=== PATIENT | female | born 2000 | race Caucasian/White ===

== ENCOUNTER 2020-05-08 11:57 | Inpatient (IN) | payer OTHER ==
--- NOTE | ~2020-05-08 | OR ---
[facility] [address] [place], [place] [address] Draft DATE OF OPERATION: 05/09/2020 SURGEON: Martín Walsh DO CLOTH COVERER: Dr. Johnson. PROCEDURE: Primary low-transverse caesarean section. PREOPERATIVE DIAGNOSES: 1. Prelabor rupture of membranes, 39 weeks gestation. 2. intolerance to labor, remote from delivery. POSTOPERATIVE DIAGNOSES: 1. Prelabor rupture of membranes, 39 weeks gestation. 2. intolerance to labor, remote from delivery. 3. Status post primary low transverse and delivery of viable male term . ESTIMATED BLOOD LOSS: 500 mL. LINES: None. DRAINS: Montez catheter. FINDINGS: Viable term male weighing 7 pounds, Apgars 9 and 9 at 1 and 5 minutes respectively. Normal appearing uterus, bilateral tubes and ovaries. ROT position at the time of delivery. INDICATIONS: The patient was admitted on 05/08/2020 for premature rupture of membranes. Pen G was started for GBS prophylaxis. She initially made change from 2 cm to 3 cm, then failed to make further change, Pitocin was started that had to be discontinued and repeated 3 times after consistently demonstrating intolerance to labor and no cervical changer fixer 4 hours. She was consented for primary delivery. PATIENT NAME: BILLIE GRANADOS OPERATIVE REPORT DATE OF : [birth year] REPORT #: [id number] PHYSICIAN: MARTÍN WALSH DO PCP: NO PRIMARY CARE PHYSICIAN REPORT IS CONFIDENTIAL AND NOT TO BE RELEASED WITHOUT AUTHORIZATION [facility] [address] [place], [place] [address] Draft DESCRIPTION OF PROCEDURE: The patient was taken to the operating room where epidural anesthesia was bolused. Montez catheter was already in place. IPCs were placed bilaterally. She was given 2 g of Ancef and 500 mg of Azithromycin IV. She was prepped and draped in a normal sterile fashion in supine fashion with leftward tilt. Adequate anesthesia was determined. Pfannenstiel incision was made with a scalpel and carried through the underlying fascia. Fascial incision was extended bilaterally with Robles scissors. Superior margin of fascia was grasped and elevated with Syeda clamps, underlying rectus muscle dissected off bluntly and sharply with Robles scissors with similar fashion. The inferior margin was grasped with Syeda clamps, elevated, underlying rectus muscle dissected off bluntly and sharply with Robles scissors. The peritoneum was entered, bladder was well visualized and noted to be high. The peritoneal incision was extended superiorly with Metzenbaum scissors. Delvin retractor was placed. Low transverse uterine incision was made with a scalpel and hysterotomy was extended laterally with superior and inferior manual traction. Infants's head was easily elevated to the level of the incision, noted to be in ROT position, delivered easily with nuchal x1, which was reduced. The remainder of 's body was delivered easily. Baby gave an immediate spontaneous cry, cord was doubly clamped and cut and baby was immediately handed off to waiting nursery team. Cord blood was collected for type and Gómez. Segment of cord was collected in case of need for future culture and placenta was delivered manually with gentle cord traction. Uterus was cleared off membranes and clots. Hysterotomy was closed in a double-layered closure first with 0 Monocryl in a running fashion then with 0 Monocryl in an imbricating fashion. Excellent hemostasis of the hysterotomy was noted. Gutters were cleared of clots and debris and pelvis was suctioned and irrigated. Sheet of Acell was placed over the hysterotomy, which was again noted to be hemostatic. The peritoneum was closed with 2-0 Vicryl in a running fashion. Rectus muscles were reapproximated with 0 Vicryl in a simple interrupted fashion and small perforating vessels were cauterized with a Bovie cautery. Fascia was closed with 0 Vicryl in a running fashion working medially from each apex with 2 sutures meeting in the middle. Subcutaneous perforating vessels were cauterized with Bovie cautery and subcutaneous layer was closed with 3-0 Vicryl in a simple interrupted fashion. Skin was closed with skin clips. Uterus was Crede'd with small amount of blood clot noted with no persistent bleeding and fundus was firm below umbilicus. Skin was top dressed with a dressing. All lap, sponge, and instrument counts were correct x2. The patient was transported to [facility] for recovery with infant skin to skin. Both mother and baby were noted to be in stable condition. Martín Walsh DO PATIENT NAME: BILLIE GRANADOS OPERATIVE REPORT DATE OF : [birth year] REPORT #: [id number] PHYSICIAN: MARTÍN WALSH DO PCP: NO PRIMARY CARE PHYSICIAN REPORT IS CONFIDENTIAL AND NOT TO BE RELEASED WITHOUT AUTHORIZATION [address] [address] Draft EVETTE /[id number] Copies: ~ PATIENT NAME: BILLIE GRANADOS OPERATIVE REPORT DATE OF : [birth year] REPORT #: [id number] PHYSICIAN: MARTÍN WALSH DO PCP: NO PRIMARY CARE PHYSICIAN REPORT IS CONFIDENTIAL AND NOT TO BE RELEASED WITHOUT AUTHORIZATION
--- NOTE | 2020-05-08 14:59 | NUR ---
RT COLLECTED COVID 19 SWAB WITH NO COMPLICATIONS. RT USED THE CEPHEID RAPID TEST THROUGH [facility] PER DR REQUEST AT THIS TIME.
[2020-05-08] MEDS ORDERED: VITAFOL-OB+DHA1 EACH PO (20:27)
--- NOTE | 2020-05-09 06:38 | NUR ---
05/09/20 0638 Paola Oneal 0625- PT ARRIVES TO PACU AWAKE AND ORIENTED. PT REPORTS HER LEGS NORMALLY SHAKE DUE TO RESTLESS LEG SYNDROME BUT BECAUSE THEY ARE NUMB FROM HER EPIDURAL THE REST OF HER BODY IS SHAKING. PT REPORTS SOME PAIN DUE TO THIS IN HER ABD. RATES THE PAIN A 3/10. PT REPORTS THIS IS TOLERABLE FOR HER AT THIS TIME. PT DENIES ANY NAUSEA. 18G IV TO THE LEFT HAND IS INFUSING WELL. 0634- PT SAT UP IN BED SLIGHTLY. PT REPORTS NO DIZZINESS OR NAUSEA. 0637- LEANDRA BOSWELL RN AT THE BEDSIDE TO ASSIST THE MOTHER WITH ATTEMPTING TO BREAST FEED.
--- NOTE | 2020-05-11 12:42 | PR ---
[facility] [address] [facility] [place], [place] [address] Signed PP Progress Notes Datetime Report Generated by CPN: 05/11/2020 12:42 SUBJECTIVE: [id number] Pain: Within Normal Limits Nausea/Vomiting: Denies Flatus: Yes Bowel Movement: Yes Vital Signs: [id number] Vital Signs: Reviewed; Within Normal Limits Cardiovascular: Normal Respiratory: Normal Abdomen/Uterus: Normal Lochia: Normal Breasts: Normal Extremities: Normal Incision: Normal Progress: Normal Exam Comments: RRR CTAB FFBU 1+ pitting edema BLLE Incision c/d/i, margins well-approximated IMPRESSION/PLAN/PROCEDURES: [id number] Impression: Normal Progression Plan: Continue Present Management; Remove Minesh; Discharge Progress Notes: POD#2 s/p PLTCS for intolerance to labor remote from delivery -normal progression -hgb 8.1, asymptomatic, lochia light. Discussed importance of oral iron + bowel care - well Anticipate DC to home today Signing Physician: Martín Walsh DO Copies: ~ *Electronically Signed* 05/11/20 1242 MARTÍN WALSH DO PATIENT NAME: BILLIE GRANADOS PROGRESS NOTE DATE OF : [birth year] PHYSICIAN: MARTÍN WALSH DO RPT #: [id number] REPORT IS CONFIDENTIAL AND NOT TO BE RELEASED WITHOUT AUTHORIZATION
== END 2020-05-11 14:25 | disposition home or self-care (01) | DRG 788 ==
LOC: FBCO 11:57 → FBC 12:05 → FBCO 05-14 09:39
PROVIDERS: ADMIT Obstetrics & Gynecology; ATTEND Obstetrics & Gynecology
PROC: 00HU33Z Insertion of Infusion Device into Spinal Canal, Percutaneous Approach (ICD-10-PCS; 2020-05-09)
PROC: 3E0R3BZ Introduction of Anesthetic Agent into Spinal Canal, Percutaneous Approach (ICD-10-PCS; 2020-05-09)
PROC: 10D00Z1 Extraction of Products of Conception, Low, Open Approach (ICD-10-PCS; principal; 2020-05-09 05:27)
DX: O42.92 Full-term premature rupture of membranes, unspecified as to length of time between rupture and onset of labor (principal); Z3A.39 39 weeks gestation of pregnancy; Z37.0 Single live birth; O32.2XX0 Maternal care for transverse and oblique lie, not applicable or unspecified; O76 Abnormality in fetal heart rate and rhythm complicating labor and delivery; O99.824 Streptococcus B carrier state complicating childbirth; Z87.440 Personal history of urinary (tract) infections
CPT/HCPCS: 01961; 36415; 82565; 82570; 84156; 84450; 84520; 84550; 85025; 85027; A9270; J0456; J0690; J1650; J1885; J2001; J2274; J2405; J2540; J2550; J2590; J2795; J7121; U0003